=== PATIENT | female | born 1975 | race Caucasian/White ===

== ENCOUNTER 2018-08-27 00:37 | Emergency (ER) | payer OTHER ==
[2018-08-27] MEDS ORDERED: KETOROLAC 15 MG/1 ML SDV IVP ONE (01:24)
[2018-08-27] MEDS ORDERED: LORazepam 2 MG/ML INJ IVP ONE (01:24)
--- NOTE | 2018-08-27 01:30 | EDPHY ---
H & P Stated Complaint: Mid and left sided CP sudden onset at 2130 Time Seen by Provider: 08/27/18 01:15 HPI/ROS: HPI The patient presents with chest pain which began at about 930 tonight when she was getting into bed. The pain started slowly and got progressively worse. She describes it as a dull pain in her mid and left chest which occasionally radiates toward her left scapula and is sharp and shooting. It is associated with shortness of breath. Patient thought that she may be having a panic attack , however this was more long-lasting than her previous so she comes to the ER. She does not have any nausea, vomiting, dizziness, diaphoresis. She has not had pain like this before. She normally takes a marijuana edible before going to bed, however did not take 1 tonight.. REVIEW OF SYSTEMS 10 systems were reviewed and negative with the exception of the elements mentioned in the history of present illness. PMHx: History of anxiety and insomnia, previously on Ativan, Lunesta, sertraline, now managing her symptoms with marijuana Soc Hx: No recent alcohol, no tobacco use, occasional marijuana FHx: No history of CAD PHYSICAL General Appearance: Alert, tearful and anxious Eyes: Pupils equal and round no pallor or injection ENT, Mouth: Mucous membranes moist Respiratory: There are no retractions, lungs are clear to auscultation Cardiovascular: Regular rate and rhythm , no chest wall tenderness Gastrointestinal: Abdomen is soft and non-tender, no masses, bowel sounds normal Neurological: A&O, moves all extremities Skin: Warm and dry, no rashes Musculoskeletal: Neck is supple non tender Extremities: symmetrical, full range of motion Psychiatric: Patient is oriented X 3, there is no agitation Source: Patient Exam Limitations: No limitations - Personal History LMP (Females 10-55): 15-21 Days Ago Current Tetanus Diphtheria and Acellular Pertussis (TDAP): Unsure - Medical/Surgical History Hx Asthma: No Hx Chronic Respiratory Disease: No Hx Diabetes: No Hx Cardiac Disease: No Hx Renal Disease: No Hx Cirrhosis: No Hx Alcoholism: No Hx HIV/AIDS: No Hx Splenectomy or Spleen Trauma: No Other PMH: TIA x 3 - Social History Smoking Status: Never smoked Constitutional: Initial Vital Signs Temperature (C) 36.7 C 08/27/18 00:39 Heart Rate 111 H 08/27/18 00:39 Respiratory Rate 20 08/27/18 00:39 Blood Pressure 168/103 H 08/27/18 00:39 O2 Sat (%) 97 08/27/18 00:39 O2 Delivery Mode Room Air Allergies/Adverse Reactions: benzocaine Allergy (Verified 08/27/18 00:39) lidocaine Allergy (Verified 08/27/18 00:39) Home Medications: Medication Instructions Recorded Aspirin 81mg (*) 08/27/18 Medical Decision Making - Diagnostics EKG Interpretation: EKG: Complete interpretation has been separately recorded in the [email or web address] archive. Summary impression: Normal sinus rhythm Imaging Results: Chest x-ray two view shows no cardiomegaly, no pneumothorax, no pleural effusion , interpreted by me, radiology interpretation is pending. Imaging: I viewed and interpreted images myself Differential Diagnosis: This is a 42-year-old female with history of anxiety who presents from home with chest pain which is in her mid sternum and left chest associated with shortness of breath and anxiety. Here she is initially tachycardic, however this is improved. EKG is unremarkable. She is given Toradol and Ativan for her symptoms with improvement. Troponin was negative, I have a low suspicion for ACS. Her heart score is low. The patient was observed in the emergency department. She continued to feel well. Labs were unremarkable. She will be discharged home. I suspect anxiety or muscle spasm as cause of her pain ultimately. - Data Points Laboratory Results: Laboratory Results 08/27/18 01:08 08/27/18 01:08 08/27/18 08/27/18 08/27/18 01:21 01:08 01:08 WBC 8.12 10^3/uL 10^3/uL (3.80-9.50) RBC 4.84 10^6/uL 10^6/uL (4.18-5.33) Hgb 14.2 g/dL g/dL (12.6-16.3) Hct 42.5 % % (38.0-47.0) MCV 87.8 fL fL (81.5-99.8) MCH 29.3 pg pg (27.9-34.1) MCHC 33.4 g/dL g/dL (32.4-36.7) RDW 12.4 % % (11.5-15.2) Plt Count 299 10^3/uL 10^3/uL (150-400) MPV 10.0 fL fL (8.7-11.7) Neut % (Auto) 54.0 % % (39.3-74.2) Lymph % (Auto) 36.9 % % (15.0-45.0) [place] % (Auto) 7.0 % % (4.5-13.0) Eos % (Auto) 1.7 % % (0.6-7.6) Baso % (Auto) 0.2 % L % (0.3-1.7) Nucleat RBC Rel Count 0.0 % % (0.0-0.2) Absolute Neuts (auto) 4.37 10^3/uL 10^3/uL (1.70-6.50) Absolute Lymphs (auto) 3.00 10^3/uL 10^3/uL (1.00-3.00) Absolute Monos (auto) 0.57 10^3/uL 10^3/uL (0.30-0.80) Absolute Eos (auto) 0.14 10^3/uL 10^3/uL (0.03-0.40) Absolute Basos (auto) 0.02 10^3/uL 10^3/uL (0.02-0.10) Absolute Nucleated RBC 0.00 10^3/uL 10^3/uL (0-0.01) Immature Gran % 0.2 % % (0.0-1.1) Immature Gran # 0.02 10^3/uL 10^3/uL (0.00-0.10) Sodium 142 mEq/L mEq/L (135-145) Potassium 3.8 mEq/L mEq/L (3.5-5.2) Chloride 110 mEq/L mEq/L (97-110) Carbon Dioxide 26 mEq/l mEq/l (22-31) Anion Gap 6 mEq/L mEq/L (6-14) BUN 18 mg/dL mg/dL (7-23) Creatinine 0.9 mg/dL mg/dL (0.6-1.0) Estimated GFR > 60 Glucose 97 mg/dL mg/dL (70-100) Calcium 9.3 mg/dL mg/dL (8.5-10.4) POC Troponin I 0.00 ng/mL ng/mL (0.00-0.08) Medications Given: Discontinued Medications Ketorolac Tromethamine (Toradol) 15 mg IVP EDNOW ONE Stop: 08/27/18 01:25 Last Admin: 08/27/18 01:32 Dose: 15 mg Lorazepam (Ativan Injection) 1 mg IVP EDNOW ONE Stop: 08/27/18 01:25 Last Admin: 08/27/18 01:33 Dose: 1 mg Point of Care Test Results: Chemistry 08/27/18 01:21 POC Troponin I 0.00 ng/mL ng/mL (0.00-0.08) Departure - Departure Disposition: Home, Routine, Self-Care Clinical Impression: Chest pain Qualifiers: Chest pain type: unspecified Qualified Code(s): R07.9 - Chest pain, unspecified Condition: Good Instructions: Chest Pain (ED) Additional Instructions: Please return to the emergency department if your worse in any way. I suspect her symptoms could be related to anxiety or a muscle spasm. I have given you the name of a primary care doctor below. I encourage you to make a follow-up appointment for recheck. Referrals: Sanjuanita Goff MD [Medical Doctor] - As per Instructions
[2018-08-27 01:32] LABS: PLATELET COUNT 299 10^3/uL (150-400)
[2018-08-27 02:43] VITALS: BP 119/76
--- NOTE | 2018-08-28 05:29 | CPEKG ---
Test Reason : OPEN Blood Pressure : / mmHG Vent. Rate : 089 BPM Atrial Rate : 086 BPM P-R Int : 168 ms QRS Dur : 071 ms QT Int : 364 ms P-R-T Axes : 084 065 049 degrees QTc Int : 443 ms Sinus rhythm Confirmed by Rhea Mayberry ([id number]) on 08/28/2018 5:29:16 AM Referred By: Confirmed By:Rhea Mayberry
== END 2018-08-27 03:02 | disposition home or self-care (01) ==
DX: R07.9 Chest pain, unspecified (principal); M25.512 Pain in left shoulder
CPT/HCPCS: 84484-ER; 96374; J1885; J2060